=== PATIENT | male | born 2000 | race Caucasian/White ===

== ENCOUNTER 2025-01-24 07:27 | Emergency (ER) | payer OTHER, SELFPAY ==
--- OUTSIDE RECORDS SUMMARY | 2025-01-24 07:30 | XMS_ITS | Clinical Summary ---
Author Organization [employer] [facility] Address [address] [place] [id number] Care Team Providers Care Jr. Systems Administrator Name Role Phone VotelChristiano MD Primary Care Provider + Allergies No known active allergies Medications buPROPion (WELLBUTRIN) 100 mg tabletIndication s:Depression with anxiety Take 1 tablet by mouth once daily in the afternoon. 30 tablet 1 05/16/2017 Active sertraline (ZOLOFT) 100 mg tabletIndication s:Anxiety and depression TAKE 1 TABLET BY MOUTH DAILY 30 tablet 11/10/2019 Active Active Problems Problem Noted Date Diagnosed Date Depression with anxiety 05/16/2017 Traumatic brain injury with loss of consciousnes s 11/28/2015 Immunizations Immunization Administration Dates Next Due Influenza, IIV4 07/01/2016 Tdap 05/26/2012 Varicella Vaccine 05/26/2012 Social History Tobacco Use Types Packs/Day Years Used Date Smoking Tobacco: Passive Smo ke Exposure - Never Smoker Smokeless Tobacco: Never Tobacco Cessation:Counseling Given: No Comments:parents smoke outside Alcohol Use Standard Drinks/Week Comments No 0 (1 standard drink = 0.6 oz pur e alcohol) PHQ-2 Answer Date Recorded PHQ-2 Score 6 01/26/2019 Sex and Gender Information Value Date Recorded Sex Assigned at Not on file 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 Gender Identity Not on file Sexual Orientation Not on file Obstetrics History Last Filed Vital Signs Vital Sign Reading Time Taken Comments Blood Pressure 109/68 01/26/2019 12:51 PM CDT Pulse 44 01/26/2019 12:51 PM CDT Temperature 36.7 C (98 F) 01/08/2017 11:48 AM CDT Respiratory Rate 18 11/27/2015 10:5 8 PM AIRPORT GUIDE Oxygen Saturation 100% 01/26/2019 12: 51 PM CDT Inhaled Oxygen Concentration - - Weight 64.3 kg (141 lb 12.8 oz) 019 12:51 PM CDT Height 180.3 cm (5' 11) 01/26/2019 12: 51 PM CDT Body Mass Index 19.78 01/26/2019 12:51 PM CDT Plan of Treatment Health Maintenance Due Date Last Done Comments HIV for age 15-65 2014 HPV series for age 9-26 (1 - Male 3-dose series) 2014 Hepatitis C screening for age 18-79 2017 BMI (ht and wt on same day) for age 18+ 01/27/2020 01/26/2019 Depression screening for age 12+ 01/27/2020 01/26/2019, 05/16/2017, 01/08/2017, Additional history exists Tetanus booster 05/26/2022 05/26/2012 COVID-19 vaccine series ( - season) 2024 Influenza Vaccine (Season Ended) 2025 07/01/2016 Tdap Completed 05/26/2012 Pneumococcal series for age 6-49 Aged Out No longer eligible based on patient's age to complete this topic Care Teams Jr. Systems Administrator Relationship Specialty Start Date End Date Votel, Christiano Ribeiro MD [address] [place] [address] PCP - General Family Practice 01/26/19
[2025-01-24 07:35] VITALS: BP 148/84; PULSE 88; RESP 16; TEMP 37.4; O2SAT 98; BMI 19.7
--- NOTE | 2025-01-24 08:04 | ED.GENADULT ---
HPI - General Adult General Time Seen by Provider: 08:05 Date Seen: 01/24/25 Chief complaint: Unspecified Complaint, Adult Stated complaint: Feeling very out of it Time Seen by Provider: 01/24/25 08:04 Source: patient, family and RN notes reviewed Mode of arrival: ambulatory Limitations: no limitations History of Present Illness HPI narrative: Assumed care of this patient from Dr. Bell, please see his initial note for full details. Related Data Allergies Allergy/AdvReac Type Severity Reaction Status Date / Time No Known Drug Allergies Allergy Verified 01/24/25 07:39 Exam Const: Vital Signs, click to edit/add: Vital Signs - 24 hr 01/24/25 07:35 01/24/25 08:39 Temperature 99.3 F 99.2 F Pulse Rate [Right Pulse Oximeter] 88 Respiratory Rate 16 Blood Pressure [Ri ght Upper Arm] 148/84 H Pulse Oximetry 98 Oxygen Delivery Me thod Room Air Course Reevaluation(s) Time of Reevaluation #1: 09:27 Reevaluation #1: Reviewed that there are no acute changes on patient's head CT. Do see evidence of his prior craniotomy and probable evacuation of subdural hematoma per her history. Stress there is no acute bleeding and he is very reassured about this. He has not been feeling sick at all. Recheck of his temperature was 99.2? but really has no symptoms acute infection. Did discuss his white count is normal, did offer COVID and influenza testing that we can contact him with results and he declines at this point. All labs are reassuring, did add on a urinalysis at patient's request. There is no evidence of infection on the urinalysis. The only thing that is pending as the thyroid, will likely take a bit longer and I will call him if there is anything wrong with the thyroid. If the thyroid is normal we will not call. Vital Signs Vital signs: Initial Vital Signs Temperature 99.3 F 01/24/25 07:35 Temperature Source Temporal Artery Scan 01/24/25 07:35 Pulse Rate 88 01/24/25 07:35 Pulse Rhythm Regular 01/24/25 07:35 Pulse Strength 3+ Normal 01/24/25 07:35 Respiratory Rate 16 01/24/25 07:35 Blood Pressure 148/84 H 01/24/25 07:35 Blood Pressure Mean 105 01/24/25 07:35 Blood Pressure Position Sitting 01/24/25 07:35 Pulse Oximetry 98 01/24/25 07:35 Oxygen Delivery Method Room Air 01/24/25 07:35 Vital Signs Temperature 99.3 F 01/24/25 07:35 Pulse Rate 88 01/24/25 07:35 Respiratory Rate 16 01/24/25 07:35 Blood Pressure 148/84 H 01/24/25 07:35 Pulse Oximetry 98 01/24/25 07:35 Oxygen Delivery Method Room Air 01/24/25 07:35 Temperature 99.2 F 01/24/25 08:39 Pulse Rate 88 01/24/25 07:35 Respiratory Rate 16 01/24/25 07:35 Blood Pressure 148/84 H 01/24/25 07:35 Pulse Oximetry 98 01/24/25 07:35 Oxygen Delivery Method Room Air 01/24/25 07:35 Medical Decision Making Lab Data Lab results reviewed: Yes I reviewed the patient's lab results Lab results narrative: TSH noted to be normal. Labs: Lab Results 01/24/25 01/24/25 01/24/25 Range/Units 08:08 08:17 09:02 WBC 4.98 (4.50-11.00) K/uL RBC 5.30 (4.30-5.90) m/uL Hgb 15.8 (13.5-17.5) gm/dL Hct 46.0 (37.0-53.0) % MCV 87 (80-100) fL MCH 30 (26-34) pg MCHC 34 (32-36) gm/dL RDW Coeff of Frida 11.8 (11.5-15.5) % Plt Count 202 (140-440) K/uL Neut % (Auto) 62.5 (42.0-72.0) % Lymph % (Auto) 27.3 (20-44) % [place] % (Auto) 6.6 (0.0-11.0) % Eos % (Auto) 2.8 (0.0-7.0) % Baso % (Auto) 0.6 (0.0-3.0) % Neut # (Auto) 3.11 (1.7-7.0) K/uL Lymph # (Auto) 1.36 (0.90-2.90) K/uL [place] # (Auto) 0.30 (0.00-0.90) K/UL Eos # (Auto) 0.14 (0.00-0.50) K/uL Baso # (Auto) 0.03 (0.00-0.30) K/uL Abs Immat Gran (auto) 0.01 (0.00-0.30) K/uL Imm/Tot Granulo (auto) 0.2 % Sodium 140 (135-149) mmol/L Potassium 4.3 (3.6-5.1) mmol/L Chloride 104 (96-114) mmol/L Carbon Dioxide 24 (20-32) mmol/L Anion Gap 12 (7-15) mEq/L BUN 11 (5-24) mg/dL Creatinine 0.9 (0.5-1.5) mg/dL Estimated Creat Clear 116.72 Estimated GFR 122 ml/min Glucose 108 (60-115) mg/dL Calcium 10.0 (8.4-10.6) mg/dL Total Bilirubin 1.0 (0.1-1.5) mg/dL AST 23 (12-35) U/L ALT 18 (4-50) U/L Alkaline Phosphatase 58 (40-150) U/L Total Protein 8.0 (6.0-8.3) g/dL Albumin 5.2 H (3.3-5.0) g/dL TSH 3.350 (0.270-4.200) uIU/mL Urine Color Light yellow (Yellow) Urine Appearance Clear (Clear) Urine pH 7.0 (5.0-8.5) Ur Specific [place] 1.010 (1.000-1.030) Urine Protein Negative (Negative) Urine Glucose (UA) Negative (Negative) Urine Ketones Negative (Negative) Urine Blood Negative (Negative) Urine Nitrite Negative (Negative) Urine Bilirubin Negative (Negative) Urine Urobilinogen 0.2 (0.2-1.0) Ur Leukocyte Esterase Negative (Negative) Urine RBC 0-2 (0-2) Urine WBC 0-2 (0-5) Ur Squamous Epith Cells None (None-Few) Urine Bacteria None (None) POC Troponin I 0.00 L (0.01-0.04) ng/ml Imaging Data CT scan - head: Attestation: I have reviewed the pertinent imaging results. Radiologist's impression: Patient: GIOVANNA SANDERS Facility:?[facility] Patient ID:?[id number] Site Patient ID:?[id number]. Site :?[id number] Study:?CT-Head WITHOUT-01/24/2025 8:33:33 AM Ordering Physician:Ruthy Miner Final Report: INDICATION: Nausea, weakness, history of ICH 2016. TECHNIQUE: CT head without contrast. COMPARISON: None. FINDINGS: Small focal encephalomalacia in the right frontal lobe. No acute loss of shay-white matter differentiation or intracranial hemorrhage. No abnormal extra-axial fluid collection. No midline shift. The ventricles are of normal caliber. Postsurgical changes of right frontal craniotomy. Mucosal thickening of the ethmoidal air cells, bilateral maxillary sinus and right sphenoid sinus. No mastoid effusion. Bilateral orbits show no acute abnormality. No calvarial fracture. IMPRESSION: Small focal encephalomalacia in right frontal lobe. No acute intracranial abnormality. Please note that all CT scans at this facility use dose modulation, iterative reconstruction, and/or weight-based dosing when appropriate to reduce radiation dose to as low as reasonably achievable. Dictated by Yani Betancur MD @ 01/24/2025 8:39:57 AM (Electronic Signature) ECG Data Attestation: I personally reviewed and interpreted this ECG as follows: (Sinus rhythm with sinus arrhythmia, 65 beats per minute. No acute ischemic change, no infarct.) Prior ECG tracings: not available for review Discharge Plan Discharge Clinical Impression: Nausea, Palpitations Patient Disposition: Home, Self-Care Condition: Stable Instructions: Heart Palpitations (ED) Additional Instructions: Highly encourage you to schedule a follow-up appointment with your primary care provider or family physician as we talked about. I will call you if there is any concern or abnormality with the pending thyroid lab. If you develop worsening symptoms, further concerns or have new changes in your health that you are worried about, do recommend re-evaluation. Activity Level: No Restrictions Discharge Diet: Regular Follow Up/Referrals: Provider,Not a Local [Primary Care Provider] - Stand Alone Forms: [employer] Info Instructions
--- NOTE | 2025-01-24 08:08 | CRLHL7_ITS ---
For Patients: As a result of the Century Cures Act, medical imaging exams and procedure reports are released immediately into your electronic medical record. You may view this report before your referring provider. If you have questions, please contact your health care provider. INDICATION: Nausea, weakness, history of ICH 2016. TECHNIQUE: CT head without contrast. COMPARISON: None. FINDINGS: Small focal encephalomalacia in the right frontal lobe. No acute loss of shay-white matter differentiation or intracranial hemorrhage. No abnormal extra-axial fluid collection. No midline shift. The ventricles are of normal caliber. Postsurgical changes of right frontal craniotomy. Mucosal thickening of the ethmoidal air cells, bilateral maxillary sinus and right sphenoid sinus. No mastoid effusion. Bilateral orbits show no acute abnormality. No calvarial fracture. IMPRESSION: Small focal encephalomalacia in right frontal lobe. No acute intracranial abnormality. Please note that all CT scans at this facility use dose modulation, iterative reconstruction, and/or weight-based dosing when appropriate to reduce radiation dose to as low as reasonably achievable. Dictated by Yani Betancur MD @ 01/24/2025 8:39:57 AM (Electronically Signed)
--- NOTE | 2025-01-24 08:11 | ED_ITS ---
HPI - General Adult General Date Seen: 01/24/25 Chief complaint: Unspecified Complaint, Adult Stated complaint: Feeling very out of it Time Seen by Provider: 01/24/25 08:04 Source: patient, family and RN notes reviewed Mode of arrival: ambulatory Limitations: no limitations History of Present Illness HPI narrative: 24 yo M presenting to the ER this morning with his family with multiple con cerns. Patient reports multiple symptoms and says that he has not been feeling good, ?for a while. ?. He has multiple symptoms including sometimes he has dizzy spells and spells where he feels little bit short of breath. It sounds like many days he sometimes has a feeling where he just can not quite catch his breath, no matter how deeply he breathes. He is not really having any chest pain. He has not actually ever fainted. Also he often feels like he has poor appetite, early satiety, and sometimes nausea. He also notes that about 5 years ago he had a serious traumatic brain injury and required surgery to evacuate hematoma from the right frontal area. He says he has not had any follow-up for that brain injury for years and he is worried there might be some recurrent bleeding. He does not really have any headache or visual disturbance. No focal numbness or weakness. He also suspects that a lot his symptoms might be driven by anxiety. He notes a strong family history of anxiety. For his part he has not really seen a doctor or therapist and does not carry a formal diagnosis of anxiety. He is not on meds. What brought him to the ER this morning was that he was feeling a little bit short of breath and dizzy last night when he was trying to go to bed. Typically he feels anxious before bed and then is able to ?sleep it off?. This morning he woke up and was still feeling that way, also some abdominal pain that came and went. He decided that his symptoms were worse today than previously he came to the ER. Related Data Allergies Allergy/AdvReac Type Severity Reaction Status Date / Time No Known Drug Allergies Allergy Verified 01/24/25 07:39 Exam Narrative: Exam Narrative: Constitutional: Appears well-developed and well-nourished. Alert. Conversant. Non toxic. Family at his side. She is very supportive. HENT: Head: Atraumatic. No depressed skull fracture, Raccoon Eyes, Chaudhry's sign, or hemotympanum. Face normal. TMs normal healed scar inside his hairline on the right frontal scalp. Nose: Nose normal. Mouth/Throat: Oral mucosa is clear and moist. no trismus. Pharynx normal. Tonsils symmetric. No tonsillar enlargement, erythema, or exudate. Eyes: Conjunctivae normal. EOM normal. Pupils equal, round, and reactive to light. No scleral icterus. Neck: Normal range of motion. Neck supple. No tracheal deviation present. No thyromegaly. Cardiovascular: Normal rate, regular rhythm. No gallop. No friction rub. No murmur heard. Symmetric radial artery pulses Pulmonary/Chest: Effort normal. No stridor. No respiratory distress. No wheezes. No rales. No rhonchi . No tenderness. x Abdominal: Soft. Bowel sounds normal. No distension. No mass. No tenderness. No rebound. No guarding. No CVA tenderness Musculoskeletal: RUE: Normal range of motion. No tenderness. No deformity LUE: Normal range of motion. No tenderness. No deformity RLE: Normal range of motion. No edema. No tenderness. No deformity LLE: Normal range of motion. No edema. No tenderness. No deformity Neurological: Alert and oriented to person, place, and time. Normal strength. CN II-VII intact. No sensory deficit. GCS eye subscore is 4. GCS verbal subscore is 5. GCS motor subscore is 6. Normal coordination Skin: Skin is warm and dry. No rash noted. No pallor. Normal capillary refill. Psychiatric: He is calm and polite. Somewhat flat affect. Endorses that he may have underlying anxiety causing his symptoms. He has a strong family history of anxiety. He does not have primary care therapy and does not have formal diagnosis. He does not take any meds. He endorses symptoms where he sometimes just can not fall asleep at night because of insomnia, also sometimes dizzy spells and racing heart. Sometimes he feels like he has a little bit short of breath. Const: Vital Signs, click to edit/add: Vital Signs - 24 hr 01/24/25 07:35 Temperature 99.3 F Pulse Rate [Right Pulse Oximeter] 88 Respiratory Rate 16 Blood Pressure [Ri ght Upper Arm] 148/84 H Pulse Oximetry 98 Oxygen Delivery Me thod Room Air Course Vital Signs Vital signs: Initial Vital Signs Temperature 99.3 F 01/24/25 07:35 Temperature Source Temporal Artery Scan 01/24/25 07:35 Pulse Rate 88 01/24/25 07:35 Pulse Rhythm Regular 01/24/25 07:35 Pulse Strength 3+ Normal 01/24/25 07:35 Respiratory Rate 16 01/24/25 07:35 Blood Pressure 148/84 H 01/24/25 07:35 Blood Pressure Mean 105 01/24/25 07:35 Blood Pressure Position Sitting 01/24/25 07:35 Pulse Oximetry 98 01/24/25 07:35 Oxygen Delivery Method Room Air 01/24/25 07:35 Vital Signs Temperature 99.3 F 01/24/25 07:35 Pulse Rate 88 01/24/25 07:35 Respiratory Rate 16 01/24/25 07:35 Blood Pressure 148/84 H 01/24/25 07:35 Pulse Oximetry 98 01/24/25 07:35 Oxygen Delivery Method Room Air 01/24/25 07:35 Temperature 99.3 F 01/24/25 07:35 Pulse Rate 88 01/24/25 07:35 Respiratory Rate 16 01/24/25 07:35 Blood Pressure 148/84 H 01/24/25 07:35 Pulse Oximetry 98 01/24/25 07:35 Oxygen Delivery Method Room Air 01/24/25 07:35 Medical Decision Making MDM Narrative Medical decision making narrative: Very pleasant 24-year-old male presenting the ER this morning with his family with multiple concerns including symptoms ongoing for at least months, maybe a few years. The symptoms include intermittent palpitations, shortness of breath, nausea, early satiety, sometimes insomnia. Differential here is broad. He has a history of TBI. Although he does not have any severe headache or other symptoms that raise major concern for recurrent ICH we will obtain repeat head CT to make sure there is no recurrent bleed or mass effect. Also will check labs to look for thyroid disorder, electrolyte disorder, anemia. Because of palpitations will obtain EKG to look for ectopy, arrhythmia, or poss ible arrhythmogenic abnormality.. Will check single troponin to look for possible myocarditis but based on chronicity that seems unlikely. On my exam though he has a normal rhythm and rate. He is negative by PERC. Discussed with my partner, Dr. Su at shift change and she will follow up on the results of his labs and CT. Also of note he had a temperature triage 99.3. He did not feel febrile at home. He is not otherwise sick or coughing or having other UR symptoms. Will have the nurses recheck his temperature. He was apparently bundled up in code and had when he was coming through triage. Clinical impression at this point: 1. Palpitations 2. Shortness of breath 3. Nausea 4. Possible anxiety
[2025-01-24 08:26] LABS: Basophils Absolute Auto 0.03 K/uL (0.00-0.30); Basophils Percent Auto 0.6 % (0.0-3.0); Eosinophils Absolute Auto 0.14 K/uL (0.00-0.50); Eosinophils Percent Auto 2.8 % (0.0-7.0); Hemoglobin* 15.8 gm/dL (13.5-17.5); Immature Granulocytes Abs Auto 0.01 K/uL (0.00-0.30); Immature Granulocytes Pct Auto 0.2 %; Lymphocytes Absolute Auto 1.36 K/uL (0.90-2.90); Lymphocytes Percent Auto 27.3 % (20-44); Mean Corpuscular HGB Conc 34 gm/dL (32-36); Mean Corpuscular Hemoglobin 30 pg (26-34); Mean Corpuscular Volume 87 fL (80-100); Monocytes Percent Auto 6.6 % (0.0-11.0); Neutrophils Absolute Auto 3.11 K/uL (1.7-7.0); Neutrophils Percent Auto 62.5 % (42.0-72.0); Platelet Count* 202 K/uL (140-440); RDW Coefficient of Variation % 11.8 % (11.5-15.5); White Blood Count* 4.98 K/uL (4.50-11.00)
[2025-01-24 08:35] LABS: Slide Review Reflex No
[2025-01-24 08:39] VITALS: TEMP 37.3
[2025-01-24 08:42] LABS: Albumin* 5.2 g/dL (3.3-5.0); Chloride* 104 mmol/L (96-114); Potassium* 4.3 mmol/L (3.6-5.1); Sodium* 140 mmol/L (135-149)
--- OUTSIDE RECORDS SUMMARY | 2025-01-24 08:44 | XMS_ITS | Clinical Summary ---
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
[2025-01-24 08:45] LABS: Alanine Aminotransferase* 18 U/L (4-50); Alkaline Phosphatase* 58 U/L (40-150); Anion Gap 12 mEq/L (7-15); Aspartate Amino Transferase* 23 U/L (12-35); Blood Urea Nitrogen* 11 mg/dL (5-24); Carbon Dioxide* 24 mmol/L (20-32); Creatinine* 0.9 mg/dL (0.5-1.5); Est. Creatinine Clearance* 116.72; Estimated Glomerular Filt Rate 122 ml/min
[2025-01-24 08:46] LABS: Glucose* 108 mg/dL (60-115)
[2025-01-24 09:07] LABS: Appearance Urine Clear (Clear); Bilirubin Urine Negative (Negative); Blood Urine Negative (Negative); Color Urine Light yellow (Yellow); Glucose Urine Negative (Negative); Ketones Urine Negative (Negative); Leukocyte Esterase Urine Negative (Negative); Nitrite Urine Negative (Negative); Protein Urine Negative (Negative); Urobilinogen Urine 0.2 (0.2-1.0)
[2025-01-24 09:19] LABS: RBC Urine 0-2 (0-2); WBC Urine 0-2 (0-5)
== END 2025-01-24 10:06 | disposition home or self-care (01) ==
PROVIDERS: Emergency Medicine; Emergency Provider Family Medicine
DX: R00.2 Palpitations (principal); R11.0 Nausea
CPT/HCPCS: 36415; 70450; 80053; 81001; 84443; 84484; 85025; 93005; 99283; 99284